=== PATIENT | male | born 1965 | race Caucasian/White ===

== ENCOUNTER 2019-10-08 08:38 | Outpatient (CLI) | payer OTHER, SELFPAY ==
[2019-10-08 08:59] LABS: Basophils Absolute Auto 0.1 K/mm3 (0.0-0.1); Basophils Percent Auto 0.6 % (0.2-1.2); Eosinophils Absolute Auto 0.2 K/mm3 (0-0.3); Eosinophils Percent Auto 1.6 % (0-4.4); Hematocrit 37.9 % (42.0-52.0); Hemoglobin 12.7 g/dL (14.0-18.0); Immature Granulocyte Absolute 0.92 K/mm3 (0.00-0.031); Immature Granulocyte Percent A 7.4 % (0-0.5); Lymphocytes Absolute Auto 1.56 K/mm3 (0.9-3.2); Lymphocytes Percent Auto 12.5 % (18.3-44.2); Mean Corpuscular HGB Conc 33.5 g/dl (32-36); Mean Corpuscular Volume 89.4 fl (80-100); Monocytes Absolute Auto 0.9 K/mm3 (0.1-0.6); Monocytes Percent Auto 7.2 % (2.6-8.5); Neutrophils Absolute Auto 8.8 K/mm3 (1.3-6.7); Neutrophils Percent Auto 70.7 % (45.5-73.1); Platelet Count Result 242 k/mm3 (150-375); Red Blood Count 4.24 M/mm3 (4.6-6.20); Red Cell Distribution Width 13.8 % (11.5-14.5); White Blood Count 12.5 K/mm3 (4.5-10.0)
[2019-10-08 09:18] LABS: Anion Gap 8 mmol/L (8-16); Blood Urea Nitrogen 16 mg/dL (9-20); Calcium 8.9 mg/dL (8.4-10.2); Carbon Dioxide 29 mmol/L (22-30); Chloride 100 mmol/L (98-107); Estimated Glomerular Filt Rate > 60; Glucose 113 mg/dL (75-110); Potassium 3.9 mmol/L (3.4-5.0); Sodium 137 mmol/L (137-145)
[2019-10-08 09:33] LABS: Erythrocyte Sedimentation Rate 112 mm/hr (0-20)
== END 2019-10-08 08:39 | disposition home or self-care (01) ==
PROVIDERS: PCP Family Medicine; Visit Provider Physician Assistant Medical
DX: L03.90 Cellulitis, unspecified (principal)
CPT/HCPCS: 36415; 80048; 85025; 85652; 86140

== ENCOUNTER 2019-10-23 15:23 | Outpatient (CLI) | payer OTHER, SELFPAY ==
--- NOTE | ~2019-10-23 | US_ITS ---
EXAMINATION: US venous doppler [facility] DATE: 10/23/2019 16:06 INDICATION: Lower limb pain and cellulitis TECHNIQUE: Palomo scale images without and with compression and Doppler images of the bilateral lower e xtremity veins were obtained. COMPARISON: None FINDINGS: The right common femoral vein, profunda femoral vein, femoral vein, popliteal vein, peroneal trunk, p osterior tibial veins, and greater saphenous vein are patent. Incidental note is made of an enlarged right inguinal lymph node. The left common femoral vein, profunda femoral vein, femoral vein, popliteal vein, peroneal trunk, po sterior tibial veins, and greater saphenous vein are patent. IMPRESSION: 1. Patent bilateral lower extremity veins. No evidence of deep venous thrombosis. 2. Enlarged right inguinal lymph node, likely reactive given history of cellulitis. Reviewed, dictated and finalized at location B. IMPRESSION: 1. Patent bilateral lower extremity veins. No evidence of deep venous thrombosi s. 2. Enlarged right inguinal lymph node, likely reactive given history of celluli tis.
[2019-10-23 16:58] LABS: Basophils Percent Auto 0.6 % (0.2-1.2); Eosinophils Absolute Auto 0.4 K/mm3 (0-0.3); Eosinophils Percent Auto 5.6 % (0-4.4); Hematocrit 38.7 % (42.0-52.0); Hemoglobin 12.9 g/dL (14.0-18.0); Immature Granulocyte Absolute 0.03 K/mm3 (0.00-0.031); Immature Granulocyte Percent A 0.5 % (0-0.5); Lymphocytes Absolute Auto 1.74 K/mm3 (0.9-3.2); Mean Corpuscular HGB Conc 33.3 g/dl (32-36); Mean Corpuscular Hemoglobin 30.4 pg (26-34); Mean Corpuscular Volume 91.1 fl (80-100); Mean Platelet Volume 8.8 fl (7.4-10.4); Monocytes Absolute Auto 0.4 K/mm3 (0.1-0.6); Monocytes Percent Auto 6.7 % (2.6-8.5); Neutrophils Absolute Auto 3.8 K/mm3 (1.3-6.7); Neutrophils Percent Auto 59.6 % (45.5-73.1); Platelet Count Result 313 k/mm3 (150-375); Red Blood Count 4.25 M/mm3 (4.6-6.20); Red Cell Distribution Width 13.5 % (11.5-14.5); White Blood Count 6.4 K/mm3 (4.5-10.0)
== END 2019-10-23 15:24 | disposition home or self-care (01) ==
PROVIDERS: PCP Family Medicine; Visit Provider Physician Assistant Medical
DX: M79.661 Pain in right lower leg (principal); L03.115 Cellulitis of right lower limb; M79.89 Other specified soft tissue disorders; R59.0 Localized enlarged lymph nodes
CPT/HCPCS: 36415; 85025; 93970

== ENCOUNTER 2020-01-25 10:17 | Emergency (ER) | payer OTHER, SELFPAY ==
--- NOTE | ~2020-01-25 | XR_ITS ---
XR ribs RT 2V w CXR 2V DATE: 01/25/2020 11:09 INDICATION: Right sided rib pain following fall TECHNIQUE: PA and lateral views. 4 views of the right ribs. COMPARISON: None FINDINGS: Normal heart size. No hilar or mediastinal enlargement. No pulmonary infiltrate or consolid ation, pleural effusion or pulmonary vascular congestion or pneumothorax. Degenerative spurring of the thoracic spine. No fracture or bone destruction of the right ribs is evident. IMPRESSION: No right rib fracture is noted. Reviewed, dictated and finalized at location A. TING ENGINEER
[2020-01-25 10:30] VITALS: BP 140/88; PULSE 58; RESP 18; TEMP 36.1; O2SAT 98
--- NOTE | 2020-01-25 11:16 | ED.FALL ---
HPI - Fall General Chief Complaint: Fall Stated Complaint: right rib pain s/p fall Time Seen by Provider: 01/25/20 10:57 Source: patient Mode of arrival: ambulatory Limitations: no limitations History of Present Illness HPI Narrative: This is a 54-year-old male that presents the emergency department for right-sided rib pain after an injury last night. Reports he was outside doing some work on his car. Reports he was holding something and accidentally tripped and fell forward. Reports landing on his right side. Reports he has had pain in the right ribs since the fall. Pain is worse with palpation and deep breathing. Denies fever hitting his head, loss of consciousness, other injuries, or shortness of breath. Related Data Home Medications Medication Instructions Recorded Confirmed omeprazole 40 mg capsule,delayed 40 mg PO DAILY 07/12/19 10/12/19 release Allergies Allergy/AdvReac Type Severity Reaction Status Date / Time amoxicillin Allergy Unknown Unknown Verified 01/25/20 11:03 Cephalosporins Allergy Unknown Unknown Verified 01/25/20 11:03 NSAIDS (Non-Steroidal Allergy Unknown Unknown Verified 01/25/20 11:03 Anti-Inflamma Penicillins Allergy Unknown Unknown Verified 01/25/20 11:03 ciprofloxacin AdvReac Unknown N&V Verified 01/25/20 11:03 Review of Systems Review of Systems: Narrative: CONSTITUTIONAL: Denies fever CARDIOVASCULAR: Reports chest/rib pain RESPIRATORY: Denies dyspnea. All systems reviewed & are unremarkable except as noted in HPI and below PMFSH Family History Family History Father Family history of malignant neoplasm Family history of lung cancer Mother Family history of malignant neoplasm Family history of lung cancer Grandparent Diabetes mellitus Social History Social History Smoking status: Never smoker Alcohol intake: current Gender identity (if verbalized by the patient): Male Exam Narrative: Exam Narrative: GENERAL: Well-appearing, well-nourished, and in no acute distress. HEAD: Normocephalic, atraumatic. EYES: EOMI. NECK: No midline cervical spine tenderness CHEST: Clear to auscultation. No respiratory distress. No wheezes rales or rhonchi. Tender to palpation of right, lower anterior/lateral chest wall HEART: Regular rate and rhythm. No murmur heard. Normal peripheral pulses. BACK: No midline spinal tenderness EXTREMITIES: Normal range of motion. No edema. SKIN: Warm, dry, no rash. NEURO: No focal deficits. Alert and oriented x3. PSYCH: Normal mood and affect Course Vital Signs Vital signs: Vital Signs Temperature 97 F L 01/25/20 10:30 Pulse Rate 58 L 01/25/20 10:30 Respiratory Rate 18 01/25/20 10:30 Blood Pressure 140/88 01/25/20 10:30 Pulse Oximetry 98 01/25/20 10:30 Temperature 97 F L 01/25/20 10:30 Pulse Rate 58 L 01/25/20 10:30 Respiratory Rate 18 01/25/20 10:30 Blood Pressure 140/88 01/25/20 10:30 Pulse Oximetry 98 01/25/20 10:30 MDM - Fall MDM Narrative Medical decision making narrative: Patient presents the emergency department for right-sided rib pain after an injury last night. Right-sided rib/chest x-ray is without acute findings. Patient instructed on care of rib contusion. He is to follow-up with primary care doctor. He was given warnings to return to the ER Imaging Data Radiologist's impression: ITS Impressions Ribs w/Chest X-Ray 01/25/20 11:11 IMPRESSION: No right rib fracture is noted. Critical Care Time Critical Care Time Critical Care Time: No Discharge Plan Discharge Clinical Impression: Contusion of rib on right side Qualifiers: Encounter type: initial encounter Qualified Code(s): S20.211A - Contusion of right front wall of thorax, initial encounter Patient Disposition: Home, Self-Care Condition: Stable Instructions: Rib Contusion (ED) Additional Instructi
== END 2020-01-25 11:59 | disposition home or self-care (01) ==
PROVIDERS: Emergency Provider Emergency Medicine; PCP Family Medicine
DX: S20.211A Contusion of right front wall of thorax, initial encounter (principal); W01.0XXA Fall on same level from slipping, tripping and stumbling without subsequent striking against object, initial encounter
CPT/HCPCS: 71046; 71100; 99283

== ENCOUNTER 2021-03-13 05:06 | Emergency (ER) | payer OTHER, SELFPAY ==
--- NOTE | ~2021-03-13 | XR_ITS ---
EXAMINATION: XR wrist RT min 3V EXAM DATE: 03/13/2021 06:33 INDICATION: Initial encounter following injury, with pain of the right wrist. TECHNIQUE: Right wrist frontal, frontal with ulnar deviation, oblique and lateral projections obtain ed and reviewed. There is no prior study for comparison. FINDINGS: Right wrist scapholunate joint space is maintained. There are no acute fractures or disloca tions identified. There is no subcutaneous gas. The soft tissue is unremarkable. There are no rad iopaque foreign bodies. IMPRESSION: 1. XR wrist RT min 3V exam without acute osseous findings. Reviewed, dictated and finalized at location A. E WRANGLER
--- NOTE | ~2021-03-13 | XR_ITS ---
EXAMINATION: XR_CERV2-3V_CR EXAM DATE: 03/13/2021 06:33 INDICATION: Initial encounter following injury, with pain of the cervical spine. TECHNIQUE: Cervical spine frontal, lateral, and open-mouth odontoid projections. There is no prior study for comparison. FINDINGS: There is no evidence of acute cervical fracture. The odontoid process is intact. Pre-dens space is normal. Prevertebral soft tissue is normal. There are no soft tissue abnormalities identi fied. There is moderate disc disease C5-6 and C6-7. Probably moderate uncovertebral joint arthropath y at these 2 levels. Evidence of mild to moderate cervical facet arthropathy. The vertebral bodies are aligned. Lung apices are clear. IMPRESSION: 1. No acute cervical findings. 2. Moderate cervical spondylosis. Reviewed, dictated and finalized at location A. TRONICS TECHNOLOGY DEPARTMENT CHAIR
--- NOTE | ~2021-03-13 | XR_ITS ---
EXAMINATION: XR hip BI 2V w AP pelvis EXAM DATE: 03/13/2021 06:33 INDICATION: Pain status post fall. Initial encounter. TECHNIQUE: Each hip imaged independently (separate right and also left hip) crosstable lateral and f rontal projections for interpretation. Frontal projection pelvis. There is no prior study for karlos dubois. FINDINGS: No radiographic evidence of hip avascular necrosis. There is mild symmetric bilateral hip primary osteoarthritis. There are no acute fractures or dislocations identified. There is no subcuta neous gas. The soft tissue is unremarkable. There are no radiopaque foreign bodies. IMPRESSION: 1. Pelvis, hip exam without acute osseous findings. Reviewed, dictated and finalized at location A. LICENSER
--- NOTE | ~2021-03-13 | XR_ITS ---
EXAMINATION: XR elbow RT min 3V EXAM DATE: 03/13/2021 06:33 INDICATION: Initial encounter following injury, with pain of the right elbow. TECHNIQUE: Right elbow frontal, lateral with flexion, and oblique projections obtained and reviewed. There is no prior study for comparison. FINDINGS: Right elbow anterior humeral line intact. There are no acute fractures or dislocations identified. There is no subcutaneous gas. The soft tissue is unremarkable. There are no radiopaqu e foreign bodies. IMPRESSION: 1. XR elbow RT min 3V exam without acute osseous findings. Reviewed, dictated and finalized at location A. MIC ENGINEER
--- NOTE | ~2021-03-13 | XR_ITS ---
EXAMINATION: XR shoulder RT min 2V EXAM DATE: 03/13/2021 06:33 INDICATION: Pain status post fall . Right shoulder pain. TECHNIQUE: The following right shoulder projections obtained: frontal projection with internal rotati on, frontal projection with external rotation, Grashey, and scapular Y view (4+ views). There is no prior study for comparison. FINDINGS: No evidence of right shoulder rotator cuff calcific tendinosis. There is mild glenohumer al joint, moderate acromioclavicular joint primary osteoarthritis. There are no acute fractures or di slocations identified. There is no subcutaneous gas. The soft tissue is unremarkable. There are n o radiopaque foreign bodies. IMPRESSION: 1. XR shoulder RT min 2V exam without acute osseous findings. Reviewed, dictated and finalized at location A. ER WORKER
[2021-03-13 05:13] VITALS: BP 130/79; PULSE 93; RESP 18; TEMP 36.7; O2SAT 98
--- NOTE | 2021-03-13 05:51 | ED.GENADULT ---
HPI - General Adult General Chief complaint: Extremity Injury, Upper Stated complaint: right arm pain Time Seen by Provider: 03/13/21 05:15 History of Present Illness HPI narrative: Patient 55-year-old gentleman who presents the emergency department with chief complaint of fall. The patient reports he was at work fell approximately 2 feet and landed on his right side. The patient reports he has pain in bilateral hips has pain in his right upper extremity into his neck. Patient states the pain is worse with movement and improved with rest Related Data Allergies Allergy/AdvReac Type Severity Reaction Status Date / Time amoxicillin Allergy Unknown Unknown Verified 03/13/21 05:19 Cephalosporins Allergy Unknown Unknown Verified 03/13/21 05:19 NSAIDS (Non-Steroidal Allergy Unknown Unknown Verified 03/13/21 05:19 Anti-Inflamma Penicillins Allergy Unknown Unknown Verified 03/13/21 05:19 ciprofloxacin AdvReac Unknown N&V Verified 03/13/21 05:19 Review of Systems Review of Systems: A 10 system review of systems was completed on the patient and is negative except for what is stated in the HPI. Nursing and ancillary documentation was reviewed. 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 HEAD: Normocephalic, atraumatic. EYES: PERRLA and EOMI. ENT: Nares clear, no rhinorrhea or epistaxis. Mucous membranes moist. NECK: Supple. Tenderness to palpation of the right paraspinous muscles CHEST: Clear to auscultation. No respiratory distress. HEART: Regular rate and rhythm. No murmur heard. Normal peripheral pulses. ABDOMEN: Soft, nontender, nondistended, normal active bowel sounds. EXTREMITIES: Normal range of motion. No edema. Tenderness palpation the right shoulder right elbow and right wrist, tenderness to palpation of bilateral hip SKIN: Warm, dry, no rash. NEURO: No focal deficits. Alert and oriented x3. PSYCH: Normal mood and affect. Course Course Emergency Course: Plain film x-ray of the C-spine right shoulder right elbow right wrist and hips showed no evidence of fracture as reported by the radiologist Vital Signs Vital signs: Vital Signs Temperature 36.7 C 03/13/21 05:13 Pulse Rate 93 03/13/21 05:13 Respiratory Rate 18 03/13/21 05:13 Blood Pressure 130/79 03/13/21 05:13 Pulse Oximetry 98 03/13/21 05:13 Temperature 36.7 C 03/13/21 05:13 Pulse Rate 93 03/13/21 05:13 Respiratory Rate 18 03/13/21 05:13 Blood Pressure 130/79 03/13/21 05:13 Pulse Oximetry 98 03/13/21 05:13 Medical Decision Making Vital Signs Vital Signs: Vital Signs Temperature 36.7 C 03/13/21 05:13 Pulse Rate 93 03/13/21 05:13 Respiratory Rate 18 03/13/21 05:13 Blood Pressure 130/79 03/13/21 05:13 Pulse Oximetry 98 03/13/21 05:13 Temperature 36.7 C 03/13/21 05:13 Pulse Rate 93 03/13/21 05:13 Respiratory Rate 18 03/13/21 05:13 Blood Pressure 130/79 03/13/21 05:13 Pulse Oximetry
[2021-03-13] MEDS: ONDANSETRON HCL ODT 4 MG TABLET PO (05:59)
[2021-03-13 07:05] VITALS: BP 127/67; PULSE 87; RESP 15; O2SAT 99
== END 2021-03-13 07:06 | disposition home or self-care (01) ==
PROVIDERS: Emergency Provider Emergency Medicine; PCP Family Medicine
DX: S70.01XA Contusion of right hip, initial encounter (principal); S50.01XA Contusion of right elbow, initial encounter; S46.911A Strain of unspecified muscle, fascia and tendon at shoulder and upper arm level, right arm, initial encounter; S16.1XXA Strain of muscle, fascia and tendon at neck level, initial encounter; Z77.22 Contact with and (suspected) exposure to environmental tobacco smoke (acute) (chronic); W17.89XA Other fall from one level to another, initial encounter; M47.812 Spondylosis without myelopathy or radiculopathy, cervical region
CPT/HCPCS: 72040; 73030; 73080; 73110; 73521; 99284; A9270

== ENCOUNTER 2021-07-15 09:51 | Outpatient (CLI) | payer OTHER, SELFPAY ==
--- NOTE | 2021-07-15 10:11 | ECHO_ITS ---
Patient Info Name: Aron Mckeon Age: 56 years : 1965 Gender: Male Ht: 70 in Wt: 250 lbs BSA: 2.41 m2 HR: 67 bpm BP: 112 / 67 mmHg Technical Quality: Good Exam Date: 07/15/2021 10:29 AM Exam Location: [facility] Patient Status: Outpatient Admit Date: 07/15/2021 Staff Ordering Physician: Vicki Gabriel PAC Probation Counselor: Shaun Flowers RDCS, RT Attending Provider: Vicki Gabriel PAC Referring Physician: Nery NICOLE; Exam Type: CA echo doppler color flow Study Info Indications R00.2 - Palpitations Complete two-dimensional, color flow and Doppler transthoracic echocardiogram is performed. Strain analysis performed. Summary 1. Complete two-dimensional, color flow and Doppler transthoracic echocardiogram is performed. 2. Left ventricular chamber dimension is normal. 3. Left ventricular systolic function is normal, estimated at 60-65%. 4. There is mildly increased left ventricular wall thickness. 5. The left ventricular diastolic function is grade I diastolic dysfunction. 6. E/e' 7 is not elevated. 7. Global longitudinal strain is abnormal at -12.0%. 8. There is mild aortic valve sclerosis. 9. There is mild aortic valve regurgitation. 10. The mitral valve has mildly calcified annulus. Left Ventricle E/e' 7 is not elevated. Global longitudinal strain is abnormal at -12.0%. Left ventricular chamber dimension is normal. Left ventricular systolic function is normal, estimated at 60-65%. There is mildly increased left ventricular wall thickness. The left ventricular diastolic function is grade I diastolic dysfunction. Right Ventricle Right ventricular systolic function is normal and with normal TAPSE 2.7 cm. Right ventricular chamber dimension is normal. Left Atria Left atrial chamber dimension is normal. Right Atria Right atrial chamber dimension is normal. Aortic Valve The aortic valve is trileaflet. There is mild aortic valve sclerosis. There is no aortic valve stenosis. There is mild aortic valve regurgitation. Pulmonic Valve There is no pulmonic regurgitation. Mitral Valve The mitral valve has mildly calcified annulus. There is no mitral valve stenosis. There is no mitral valve regurgitation. Tricuspid Valve There is no tricuspid valve regurgitation. Pericardium/Pleural There is no pericardial effusion. Inferior Vena Cava Normal inferior vena cava with >50% collapse upon inspiration consistent with normal right atrial pressure, 5 mmHg. Aorta The aortic root size at the sinus of Valsalva is normal. Left Ventricular Outflow Tract Name Value Normal LVOT 2D LVOT Diameter 2.2 cm LVOT Doppler LVOT Peak Gradient 6 mmHg LVOT Mean Gradient 3 mmHg LVOT VTI 25 cm LVOT VTI/AV VTI Ratio 0.7 LVOT Stroke Volume 93 ml LVOT CO 5.9 l/min LVOT CI 2.5 l/min/m2 Mitral Valve Nam
--- NOTE | 2021-07-17 15:03 | WPDHOLTEREM ---
Holter/Event Monitor Holter/Event Monitor Date of procedure: 07/15/21 Holter/Event Procedure: 24 Hr Holter Monitor Indications: Palpitations Conclusion: 1. 24 hour holter monitor on 07/15/21. 2. Predominant rhythm is sinus rhythm. HR range 50-115 bpm; average HR 82 bpm. 3. There are 31 premature supraventricular complexes and 3 supraventricular couplets. No supraventricular tachycardia. 4. There are 6,511 premature ventricular complexes, 194 ventricular couplets, 3 ventricular triplets, 24,164 ventricular bigeminy and 203 ventricular trigeminy. There is 1 multifocal ventricular tachycardia at 129 bpm lasting 4 beats at 16:57. 5. No sinoatrial or atrioventricular blocks. No significant pauses greater than 2 seconds. 6. No symptoms available for correlation.
== END 2021-07-15 09:52 | disposition home or self-care (01) ==
PROVIDERS: PCP Family Medicine; Visit Provider Physician Assistant Medical
DX: R00.2 Palpitations (principal); I34.0 Nonrheumatic mitral (valve) insufficiency
CPT/HCPCS: 93225; 93226; 93306